=== PATIENT | female | born 1955 | race Caucasian/White ===

== ENCOUNTER 2018-02-26 12:35 | Outpatient (CLI) | payer BC ==
--- NOTE | 2018-02-26 15:25 | MMO ---
BILATERAL DIGITAL SCREENING MAMMOGRAMS WITH CAD: COMPARISON: 02/09/2016 and 11/25/2013. FINDINGS: The breast tissue is heterogeneously dense, which may reduce the sensitivity of mammography. No susp icious masses or calcifications are seen. A biopsy clip in the upper outer right breast is stable. IMPRESSION: BI-RADS Category 2: Benign findings. Return to annual mammographic screening. POS: [email or web address]
== END 2018-02-26 12:36 | disposition home or self-care (01) ==
LOC: SCSMAMMO 12:35
PROVIDERS: ATTEND Family Medicine
DX: Z12.31 Encounter for screening mammogram for malignant neoplasm of breast (principal)
CPT/HCPCS: 77067